=== PATIENT | female | born 1950 | race Hispanic/Latino ===

== ENCOUNTER 2024-02-28 23:20 | Observation (INO) | payer MEDICARE, OTHER ==
[2024-02-29] MEDS ORDERED: Ondansetron ODT 4 MG TAB ONE
[2024-02-29 01:24] LABS: #Basophils 0.03 10x3/uL (0.0-0.2); %Basophils 0.4 % (0.0-1.0); %Eosinophils 2.5 % (0.0-10.0); %Monocytes 10.3 % (0.0-10.0); %Neutrophils 54.7 % (42.0-75.0); Hematocrit 40.6 % (36.0-47.0); Hemoglobin 13.9 g/dL (12.0-16.0); Mean Corpuscular HGB CONC 34.2 g/dL (32.0-36.0); Mean Corpuscular Hemoglobin 31.2 pg (27.0-31.0); Mean Platelet Volume 10.4 fL (7.4-10.4); Platelet Count 211 10x3/uL (130-400); RBC Distribution Width 12.6 % (11.5-14.5); Red Blood Cell (RBC) Count 4.46 mill/uL (4.20-5.40)
[2024-02-29 01:41] LABS: ALT (SGPT) 69 U/L (8-55); AST (SGOT) 53 U/L (5-34); Albumin 3.9 g/dL (3.4-4.8); Alkaline Phosphatase 77 U/L (40-110); Anion Gap 16 mmol/L (10-20); BUN (Urea Nitrogen) 14 mg/dL (9.8-20.1); Bilirubin, Total 0.5 mg/dL (0.2-1.2); Calc. Creatinine Clearance 0 mL/min (70-130); Calcium 9.9 mg/dL (7.8-10.44); Carbon Dioxide 22 mmol/L (23-31); Chloride 103 mmol/L (98-107); Estimated GFR 79; Globulin 3.7 g/dL (2.4-3.5); Glucose 121 mg/dL (83-110); Lipase 36 U/L (8-78); Magnesium 1.9 mg/dL (1.6-2.6); Protein, Total 7.6 g/dL (5.8-8.1); Sodium 137 mmol/L (136-145)
[2024-02-29 01:46] LABS: Troponin I 0.035 ng/mL (< 0.028)
[2024-02-29] MEDS ORDERED: Aspirin Chewable 81 MG TAB ONE (02:08)
[2024-02-29] MEDS ORDERED: Nitroglycerin 2% Ointment 1 INCH/1 GM Packet ONE (02:08)
[2024-02-29] MEDS ORDERED: Acetaminophen 500 MG TAB ONE (02:08)
[2024-02-29] MEDS ORDERED: Famotidine/PF 20 mg/2ml Vial ONE (02:09)
[2024-02-29] MEDS ORDERED: Acetaminophen 325 MG TAB PO PRN (03:36)
[2024-02-29] MEDS ORDERED: Ondansetron ODT 4 MG TAB PO PRN (03:36)
[2024-02-29] MEDS ORDERED: Acetaminophen 650 MG Suppository PR PRN (03:36)
[2024-02-29] MEDS ORDERED: Ondansetron PF 4 MG/2 ML Vial IVP PRN (03:36)
[2024-02-29 05:06] VITALS: BMI 26.6
[2024-02-29 06:37] LABS: Troponin I 0.056 ng/mL (< 0.028)
[2024-02-29] MEDS: Lisinopril 20 MG TAB PO SCH (08:21)
[2024-02-29] MEDS: Famotidine 20 MG TAB PO SCH (08:21)
[2024-02-29] MEDS: Aspirin Chewable 81 MG TAB PO SCH (08:21)
[2024-02-29] MEDS: Famotidine/PF 20 mg/2ml Vial SLOW IVP SCH (08:21)
[2024-02-29 10:51] LABS: Troponin I 0.023 ng/mL (< 0.028)
[2024-03-01] MEDS: Ibuprofen 200 MG TAB PO SCH (00:34)
[2024-03-01] MEDS ORDERED: Regadenoson 0.4 MG/5 ML SYRINGE ONE (09:11)
[2024-03-01] MEDS: Cholecalciferol 1,000 UNITS (25 MCG) TAB PO SCH (11:13)
[2024-03-01] MEDS: Sertraline 100 MG TAB PO SCH (11:13)
[2024-03-01] MEDS: Atorvastatin Calcium 10 MG TAB PO SCH (11:13)
[2024-03-01 12:40] VITALS: BMI 26.9
[2024-03-01 16:36] VITALS: BP 130/60; TEMP 98.1
== END 2024-03-01 17:30 | disposition home or self-care (01) ==
LOC: ERS 23:20 → 2NO 02-29 03:19
PROVIDERS: ADMIT Student in an Organized Health Care Education/Training Program; ATTEND Internal Medicine
DX: R07.2 Precordial pain (principal); F32.A Depression, unspecified; F41.0 Panic disorder [episodic paroxysmal anxiety]; R74.01 Elevation of levels of liver transaminase levels; I10 Essential (primary) hypertension; Z88.8 Allergy status to other drugs, medicaments and biological substances; Z92.89 Personal history of other medical treatment; Z79.82 Long term (current) use of aspirin; Z79.899 Other long term (current) drug therapy
CPT/HCPCS: 71045; 78452; 80053; 83690; 83735; 84484 ×2; 85025; 93005; 93017; 96374; 99285; A9502; G0378 ×3; J2785 ×2; J3490; Q0162; 36415